=== PATIENT | female | born 1935 | race Caucasian/White ===

== ENCOUNTER 2022-05-25 16:58 | Inpatient (IN) | payer MEDICARE, SELFPAY ==
[2022-05-25] VITALS (17 sets, daily range): BP systolic 84–113; BP diastolic 59–81; PULSE 73–92; RESP 15–25; TEMP 36.6; O2SAT 91–99
--- NOTE | ~2022-05-25 | CT_ITS ---
EXAMINATION: CT cervical spine wo con DATE: 05/26/2022 00:59 INDICATION: Fall with abnormality on head CT. TECHNIQUE: Computed tomography (CT) of the cervical spine was performed without intravenous contrast. Automated exposure control and iterative reconstruction technique were employed. The dose-length pro duct was 101.42 mGy-cm. COMPARISON: None FINDINGS: 2 mm retrolisthesis C5 on C6. Schmorl's nodes versus old healed fracture of the C3 vertebral body wit h irregularities along the anterior superior and inferior endplates and mild anterior wedging. Remain ing vertebral body heights are normal. No acute fracture. Moderate disc height loss at C5-C6 with sev ere uncovertebral osteoarthritis and small posterior disc osteophyte complex which results in mild ce ntral canal stenosis. Mild disc height loss at C2-C3, C3-C4 and T2-T3. Multilevel moderate to severe facet osteoarthritis with lower cervical and upper thoracic predominance. Neural foraminal stenosis, moderate on the left and mild to moderate on the right at C5-C6. There is mild neural foraminal steno sis at many of the remaining neural foramina in the mid cervical to upper thoracic spine. There is an approximately 11 x 9 mm extra medullary soft tissue density nodule at the right anterior aspect of t he central canal at the level of the dens and ring of C1 which is also evident on the prior head CT. Unclear whether this is extradural or intradural. This results in mild central canal stenosis at this level and appears to indent the right anterior margin of the cervical medullary junction of the and spinal cord. Multinodular goiter with suggestion of prior right thyroidectomy with small residual thy roid tissue at the right thyroid fossa. Partially visualized likely cardiac pacemaker leads extending along the visualized portion of the left subclavian vein. Mild biapical pleural-parenchymal scarring . IMPRESSION: 1. Mild to moderate cervical spondylosis with no acute osseous abnormality. 2. Indeterminate 11 x 9 mm soft tissue density nodule at the right anterior aspect of the central can al at the level of the dens and ring of C1 extra medullary, unclear whether extradural or intradural. Recommend further evaluation with pre and postcontrast cervical spine MRI. Reviewed, dictated and finalized at location A. CAL RECORD CLERK IMPRESSION: 1. Mild to moderate cervical spondylosis with no acute osseous abnormality. 2. Indeterminate 11 x 9 mm soft tissue density nodule at the right anterior asp ect of the central canal at the level of the dens and ring of C1 extra medullar y, unclear whether extradural or intradural. Recommend further evaluation with pre and postcontrast cervical spine MRI.
--- NOTE | ~2022-05-25 | CT_ITS ---
EXAMINATION: CT abd pelvis lumbar wo con DATE: 05/25/2022 23:52 INDICATION: Diffuse abdominal pain TECHNIQUE: Computed tomography (CT) of the abdomen, pelvis and lumbar spine was performed with 100 mL Omnipaque-350 intravenous contrast. Automated exposure control and iterative reconstruction techniqu e were employed. The dose-length product was 274.20 mGy-cm. COMPARISON: None FINDINGS: There are a few <4 mm pleural and subpleural nodules at the periphery of the right and left lower lob es. Right atrial enlargement. Dual-lead cardiac pacemaker/AICD with lead tip at the apex of the right ventricle and the second in the portion of the right atrium not seen on the CT images but evident on the ese teacher topogram. No pericardial or pleural effusion. Small sliding-type hiatal hernia. Nonspecifi c 1.5 cm hypodense nodule in the dome of the liver with ill-defined margins. Gallbladder, pancreas an d right adrenal gland are normal. 1.2 cm left adrenal nodule. Small splenic calcific lesions consiste nt with old granulomatous disease. Bilateral renal cysts, the largest in the left kidney measuring 3. 9 cm. 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 No bowel obstruction or abnormal bowel wall thickening. The appendix is not visualized. No pericecal inflamma tory change to suggest acute appendicitis. The uterus is not identified and has likely been surgicall y resected. Bladder is normal. Mild pelvic floor relaxation. No free intraperitoneal gas or fluid. No pathologically enlarged abdominal or pelvic lymphadenopathy. Relatively recent-appearing superior en dplate compression fracture at L1 with 20% central vertebral body height loss. Second more chronic ap pearing L3 compression fracture with 40% central vertebral body height loss. Mild lumbar dextrocurvat ure with 7 mm right lateral listhesis L4 on L5. Severe lower lumbar spondylosis. IMPRESSION: 1. Relatively recent-appearing L1 superior endplate compression fracture with additional chronic L3 c ompression fracture. 2. No acute intra-abdominal/pelvic process. 3. Indeterminate 1.5 cm ill-defined hepatic nodule and 1.2 cm left adrenal nodule. In the absence of known malignancy, both are most likely benign could consider further evaluation with pre and postcont rast MRI. 4. Right atrial enlargement. 5. Small sliding-type hiatal hernia. 6. Multiple <4 mm pleural-based and subpleural nodules at the bilateral lower lobes. If the patient i s low risk for lung cancer, no follow-up is needed. If the patient is high risk (i.e., history of smo marleny or asbestos or significant radiation exposure), optional follow-up chest CT could be considered at 12 months. Reviewed, dictated and finalized at location A. H WINDER MACHINE OPERATOR IMPRESSION: 1. Relatively recent-appearing L1 superior endplate compression fracture with a dditional chronic L3 compression fracture. 2. No acute intra-abdominal/pelvic process. 3. Indeterminate 1.5 cm ill-defined hepatic nodule and 1.2 cm left adrenal nodu le. In the absence of known malignancy, both are most likely benign could consi nicole further evaluation with pre and postcontrast MRI. 4. Right atrial enlargement. 5. Small sliding-type hiatal hernia. 6. Multiple <4 mm pleural-based and subpleural nodules at the bilateral lower l obes. If the patient is low risk for lung cancer, no follow-up is needed. If th e patient is high risk (i.e., history of smoking or asbestos or significant rad iation exposure), optional follow-up chest CT could be considered at 12 months.
--- NOTE | ~2022-05-25 | XR_ITS ---
EXAMINATION: XR chest 1V portable Exam Date/Time: 05/25/2022 20:15 PRICING ANALYST HISTORY: weakness Comparison: None available. RESULT: Lines, tubes, and devices: Left chest pacer/AICD, with intact leads. Lungs and pleura: Clear. Cardiomediastinal silhouette: Calcified right hilar node. Aortic ectasia.. Other: No acute osseous or upper abdominal finding. IMPRESSION: No acute cardiopulmonary process. Reviewed, dictated and finalized at location K. ING ANALYST
--- NOTE | ~2022-05-25 | CT_ITS ---
EXAMINATION: CT brain wo con DATE: 05/25/2022 23:52 INDICATION: Head injury post fall TECHNIQUE: Computed tomography (CT) of the head was performed without intravenous contrast. Sagittal and coronal reconstructions were performed. The mA was adjusted according to patient size. Iterative reconstruction technique was employed. The dose-length product was 605.33 mGy-cm. COMPARISON: None FINDINGS: No fracture. No acute intracranial hemorrhage, acute infarction or abnormal extra axial fluid collect ion. There is mild scattered white matter hypoattenuation consistent with chronic small vessel ischem ic disease. Symmetric prominence of the sulci and ventricles consistent with moderate age-appropriate diffuse cerebral volume loss. No mass/mass effect. The orbits, paranasal sinuses and mastoid air meli ls are normal. IMPRESSION: 1. No fracture or acute intracranial process. 2. Age-related changes including moderate diffuse volume loss and mild scattered white matter hypoatt enuation consistent with chronic small vessel ischemic disease. Reviewed, dictated and finalized at location A. E DEVELOPER IMPRESSION: 1. No fracture or acute intracranial process. 2. Age-related changes including moderate diffuse volume loss and mild scattere d white matter hypoattenuation consistent with chronic small vessel ischemic di sease.
--- NOTE | 2022-05-25 19:48 | ECG_ITS ---
Measurements Intervals [place] Rate: 80 P: NE: 0 QRS: -23 QRSD: 94 T: -13 QT: 416 QTc: 480 Interpretive Statements ATRIAL FIBRILLATION VENTRICULAR PREMATURE COMPLEXES BORDERLINE T WAVE ABNORMALITY- INFERIOR LEADS BASELINE ARTIFACT- I, II, III, AVR, AVF ABNORMAL ECG NO PREVIOUS ECG AVAILABLE FOR COMPARISON Electronically Signed On 05-25-2022 21:25:15 SALMON GILLNET VESSEL OPERATOR by Adair Root D.O.
--- NOTE | 2022-05-25 19:52 | ED.GENADULT ---
HPI - General Adult General Chief complaint: Back Pain/Injury Stated complaint: back pain Time Seen by Provider: 05/25/22 19:41 Source: patient, family and RN notes reviewed Mode of arrival: wheelchair Limitations: dementia History of Present Illness HPI narrative: This is an 86 year old female who presents for evaluation of weakness and back pain. Patient's family states patient has fallen twice in past 2 weeks, and her last fall was 1 week ago. They reports patient hit her head at time but they just found out about the fall. Patient had been complaining of left lower back pain but over the past few days she reports pain across her entire lower back when she moves. Her family also reports that patient has been weak and she not been or drinking very much this week. Her family member reports patient has been weak. She states patient had stomach bug 1 -2 weeks ago. She states patient complained about abdominal pain but she is unsure of vomiting or diarrhea. She states patient has dementia so it is hard to know what is going on. she states patient had syncopal episode after going to bathroom today. Patient sat on the toilet and told her she was dizzy. She states she told patient to hold her head down but she states she passed out. PAtient did not hit head today. Patient was seen by PCP today and she was referred to ER for evaluation . She was also started on macrobid yesterday for possible UTI. PAtient does not have any complaints. Related Data Allergies Allergy/AdvReac Type Severity Reaction Status Date / Time No Known Allergies Allergy Verified 05/25/22 20:28 Review of Systems Constitutional: Constitutional: Reports weakness Cardiovascular: Cardiovascular: Denies syncope, Denies rapid heart rate, Denies irregular heart rhythm, Denies leg edema and Denies dyspnea Respiratory: Respiratory: Denies chest congestion, Denies hemoptysis, Denies excessive phlegm production and Denies dyspnea Gastrointestinal: Gastrointestinal: Reports abdominal pain, Denies hematochezia, Denies diarrhea and Denies vomiting Genitourinary: Genitourinary: Denies hematuria and Denies dysuria Musculoskeletal: Musculoskeletal: Denies joint swelling, Denies loss of height and Denies muscle weakness Neurologic: Reports syncope, Denies focal weakness and Reports weakness PMFSH Past Medical History Medical History (Updated 05/26/22 @ 01:56 by Pardeep Cantor MD) Atrial fibrillation Pacemaker Social History Social History (Updated 05/25/22 @ 19:55 by Mary Fried MD) Smoking status: Never smoker Living arrangements: assisted living Occupation/Education: retired Course Course Emergency Course: PAtient presented with family for weakness, abdominal pain , decreased PO intake and possible syncope. She had CBC, CMP, troponin, UA, urinalysis, lactic acid, EKG, CT brain, CT lumbar spine and CT abdomen pelvis. These was done to assess for dehydration, sepsis, kidney failure, MN, pneumonia, lumbar fracture, brain injury. Labs shows dehydration and low potassium. She was started on 1 L IV fluids and given potassium 40 meq oral in ER. She was also started on maintenance fluids with IV potassium. Radiologist reported abnormal soft tissue finding and recommended CT c spine. PAtient was not have neck pain. No acute fracture seen on cervical spine. She does appear to have mild compression fracture at 1 L. Patient to be admitted on telemetry and given potassium supplementation. I discussed with hospitalist Dr. Cantor who accepts to service. Vital Signs Vital signs: Vital Signs Temperature 97.8 F 05/25/22 17:03 Pulse Rate 78 05/25/22 17:03 Respiratory Rate 16 05/25/22 17:03 Blood Pressure 84/59 L 05/25/22 17:03 Pulse Oximetry 98 05/25/22 17:03 Temperature 97.8 F 05/25/22 17:03 Pulse Rate 92 05/25/22 23:25 Respiratory Rate 23 H 05/25/22 23:25 Blood Pressure 111/75 05/25/22 23:00 Pulse Oximetry 99
[2022-05-25 20:20] LABS: Appearance Urine Slightly Cloudy (Clear); Bilirubin Urine 1+ (Negative); Blood Urine Negative (Negative); Color Urine Dark Yellow (Yellow); Glucose Urine UA Negative (Negative); Ketones Urine Negative (Negative); Leukocyte Esterase Ur Negative LEU/UL (Negative); Nitrate Urine Negative (Negative); Protein Urine 2+ mg/dL (Negative); Specific Grav Ur 1.015 (1.001-1.035); Urobilinogen Urine 0.2 mg/dL (<2.0)
[2022-05-25 20:25] LABS: Bacteria Urine Trace /hpf; Hyaline Casts Urine 15-19 /lpf; Mucus Urine Rare /lpf; RBC Urine 0-2 /hpf (0-2); Squamous Epithelial Cell Urine Occasional /hpf (Few)
[2022-05-25 20:26] LABS: Add Urine Microscopic? YES
[2022-05-25 20:36] LABS: Basophils Percent Auto 0.5 % (0.2-1.2); Eosinophils Absolute Auto 0.2 K/mm3 (0-0.3); Hematocrit 43.5 % (37.0-47.0); Hemoglobin 15.1 g/dL (12.0-15.0); Immature Granulocyte Absolute 0.03 K/mm3 (0.00-0.031); Immature Granulocyte Percent A 0.4 % (0-0.5); Lymphocytes Absolute Auto 1.72 K/mm3 (0.9-3.2); Lymphocytes Percent Auto 21.9 % (18.3-44.2); Mean Corpuscular HGB Conc 34.7 g/dl (32-36); Mean Corpuscular Hemoglobin 32.8 pg (26-34); Mean Corpuscular Volume 94.6 fl (80-100); Mean Platelet Volume 10.6 fl (7.4-10.4); Monocytes Absolute Auto 0.7 K/mm3 (0.1-0.6); Monocytes Percent Auto 8.7 % (2.6-8.5); Neutrophils Absolute Auto 5.2 K/mm3 (1.3-6.7); Neutrophils Percent Auto 66.5 % (45.5-73.1); Platelet Count Result 203 k/mm3 (150-375); White Blood Count 7.8 K/mm3 (4.5-10.0)
[2022-05-25 20:49] LABS: Lactic Acid Reflex 2.3 mmol/L (0.7-2.0)
[2022-05-25 21:01] LABS: Influenza A QL RT-PCR Negative (Negative); Influenza B QL RT-PCR Negative (Negative); RSV RNA, RT-PCR Negative (Negative); SARS-CoV-2 RNA PCR Negative
[2022-05-25] MEDS: SODIUM CHLORIDE 0.9% IV 1,000 ML 999 ML IV CONT (21:38)
[2022-05-25 22:57] LABS: INR 1.8; Prothrombin Time 20.6 Seconds (11.1-14.7)
[2022-05-25 22:58] LABS: Partial Thromboplastin Time 35.1 SECONDS (22.3-36.8)
[2022-05-25 23:04] LABS: Troponin I < 0.012 ng/mL (0.000-0.034)
[2022-05-25 23:14] LABS: Alanine Aminotransferase 14 U/L (6-35); Albumin Level 3.6 g/dL (3.5-5.1); Alkaline Phosphatase 84 U/L (38-126); Anion Gap 7 mmol/L (8-16); Aspartate Amino Transferase 24 U/L (14-36); Blood Urea Nitrogen 27 mg/dL (7-17); Calcium 8.4 mg/dL (8.4-10.2); Carbon Dioxide 32 mmol/L (22-30); Chloride 96 mmol/L (98-107); Estimated CRCL calculation 19 ml/min; Estimated Glomerular Filt Rate 33; Glucose 97 mg/dL (65-110); Lipase 344 U/L (23-300); Magnesium 2.3 mg/dL (1.6-2.3); Potassium 2.6 mmol/L (3.4-5.0); Sodium 135 mmol/L (137-145)
[2022-05-25 23:34] LABS: Reflex Lactic Acid Yes or No Add Lactic
[2022-05-26] VITALS (11 sets, daily range): BP systolic 100–116; BP diastolic 63–86; PULSE 84–120; RESP 18–21; TEMP 36.6–36.8; O2SAT 97–100; BMI 21.9
[2022-05-26] MEDS: POTASSIUM CHLORIDE 20 MEQ PACKET (FOR LIQUID) 40 MEQ PO (00:13)
[2022-05-26] MEDS: KCL 20 MEQ/D5/0.45% SOD CHL 1,000 ML 125 ML IV CONT (00:13)
--- NOTE | 2022-05-26 01:53 | PM.IMHP ---
H&P: HPI History of Present Illness Date/Time: 05/26/22 01:53 Chief Complaint: Fall Narrative: This is an 86-year-old female with advanced dementia, atrial fibrillation rate control and anticoagulated. Patient resides at residential had a fall and has had progressive decline after that was noted that she has not been eating or drinking well. She had been seen and evaluated at her primary care physician's where she was empirically started on antibiotics with the assumption that there was a urinary tract infection. Patient was brought for evaluation she was found to have a compression fracture, a repeat urinalysis did not show urinary tract infection. Most of the history has been obtained from daughter who is at bedside as patient is conversant however cannot give history. Patient has been admitted for further evaluation management and treatment. Review of Systems Review of Systems: ROS unobtainable: Yes other (Advanced dementia) [facility] Past Medical History Medical History (Updated 05/26/22 @ 04:57 by Pardeep Cantor MD) Atrial fibrillation Pacemaker Social History Social History (Updated 05/25/22 @ 19:55 by Mary Fried MD) Smoking status: Never smoker Alcohol intake: never Substance use: never Substance use type: does not use Lack of Transportation: No Lack of Food: Never True Current Housing: I Have Housing Concerned About Future Housing: No Difficulty Paying Gas/Electric Bills: No Difficulty Paying for Meds: No Currently Unemployed: No Education: High School Diploma/GED Difficulty w/ Childcare or Family Care: No Living arrangements: assisted living Occupation/Education: retired Spiritual care concerns: No Meds Home Medications and Allergies Home Medications Medication Instructions Recorded Confirmed Type Vitamin D3 25 mg BYMOUTH DAILY 05/26/22 05/26/22 History bimatoprost 0.01 % eye drops 1 drp EACH EYE DAILY 05/26/22 05/26/22 History (Nadia) donepezil 10 mg tablet 10 mg PO HS 05/26/22 05/26/22 History furosemide 40 mg tablet 40 mg PO DAILY 05/26/22 05/26/22 History metoprolol succinate 100 mg 100 mg PO DAILY 05/26/22 05/26/22 History tablet,extended release 24 hr rivaroxaban 15 mg tablet (Xarelto) 15 mg PO DAILY 05/26/22 05/26/22 History rosuvastatin 20 mg tablet 20 mg PO HS 05/26/22 05/26/22 History trazodone 50 mg tablet 50 mg PO HS 05/26/22 05/26/22 History Allergies Allergy/AdvReac Type Severity Reaction Status Date / Time No Known Allergies Allergy Verified 05/25/22 20:28 Vital Signs Vital Signs - 24 hr 05/25/22 17:03 05/25/22 21:22 05/25/22 21:30 Temperature 97.8 F Pulse Rate 78 85 86 Respiratory Rate 16 18 17 Blood Pressure 84/59 L Pulse Oximetry 98 05/25/22 21:31 05/25/22 21:32 05/25/22 21:52 Temperature Pulse Rate 87 80 Respiratory Rate 23 H 15 25 H Blood Pressure 100/72 Pulse Oximetry 91 97 05/25/22 22:00 05/25/22 22:01 05/25/22 22:15 Temperature Pulse Rate 78 Respiratory Rate 18 Blood Pressure 109/72 113/74 Pulse Oximetry 98 99 05/25/22 22:16 05/25/22 22:30 05/25/22 22:32 Temperature Pulse Rate 80 82 78 Respiratory Rate 22 H 23 H 20 Blood Pressure 101/65 Pulse Oximetry 05/25/22 22:45 05/25/22 22:46 05/25/22 23:00 Temperature Pulse Rate 84 78 73 Respiratory Rate 18 17 19 Blood Pressure 108/81 111/75 Pulse Oximetry 05/25/22 23:01 05/25/22 23:25 Temperature Pulse Rate 79 92 Respiratory Rate 19 23 H Blood Pressure Pulse Oximetry Exam Narrative: Patient is laying in a stretcher Const: General: comfortable, no acute distress, well developed, alert, awake and average body habitus Nutritional Appearance: average body habitus Orientation/consciousness: oriented to person HENMT: Head: normal to inspection, normocephalic and atraumatic Ears: hearing grossly normal bilaterally Face/Nose/Sinus: normal facial exam Face and sinus: normal facia
--- NOTE | 2022-05-26 02:06 | PC.NURSE ---
Purwick urinary external catheter at this time. Pt tolerating well.
--- NOTE | 2022-05-26 03:04 | ADMGEN ---
This patient, Laverne Moss, was admitted to Medical Room 247-. Patient/family oriented to hospital policies and general routines including ID bracelet, bed and alarms, visiting hours, pain management, procedures, bathroom and other care routines, personal items, smoking policy, room service/diet, and visiting hours. Information on how to activate the Rapid Response Team has been discussed. Patient/Family are encouraged to report perceived risks to care and to ask questions if they do not understand what they are told or what they should do.
[2022-05-26 11:19] LABS: Anion Gap 4 mmol/L (8-16); Blood Urea Nitrogen 22 mg/dL (7-17); Calcium 8.2 mg/dL (8.4-10.2); Carbon Dioxide 31 mmol/L (22-30); Chloride 99 mmol/L (98-107); Estimated CRCL calculation 22 ml/min; Estimated Glomerular Filt Rate 39; Glucose 102 mg/dL (65-110); Magnesium 2.3 mg/dL (1.6-2.3); Sodium 134 mmol/L (137-145)
[2022-05-26] MEDS: METOPROLOL SUCCINATE EXT REL 100 MG TABCR PO (11:21)
[2022-05-26] MEDS: CHOLECALCIFEROL 1,000 UNITS TABLET 1000 UNITS PO (11:21)
[2022-05-26 11:29] LABS: Hematocrit 37.6 % (37.0-47.0); Hemoglobin 12.9 g/dL (12.0-15.0); Mean Corpuscular HGB Conc 34.3 g/dl (32-36); Mean Corpuscular Hemoglobin 32.6 pg (26-34); Mean Corpuscular Volume 94.9 fl (80-100); Platelet Count Result 167 k/mm3 (150-375); Red Blood Count 3.96 M/mm3 (4.2-5.4); Red Cell Distribution Width 12.9 % (11.5-14.5); White Blood Count 7.2 K/mm3 (4.5-10.0)
[2022-05-26] MEDS: LACTATED RINGERS 1,000 ML 75 ML IV CONT (12:25)
--- NOTE | 2022-05-26 16:46 | PM.IMPN ---
Progress Note: A&P Assessment and Plan (1) Frequent falls: Code(s): R29.6 - Repeated falls Status: Acute Assessment and Plan: patient with frequent falls implement fall precautions appreciate PT/OT evals (2) Compression fracture of vertebra: Code(s): M48.50XA - Collapsed vertebra, not elsewhere classified, site unspecified, initial encounter for fracture Status: Acute Assessment and Plan: CT of the abdomen/ pelvis showed relatively recent appearing L1 superior endplate compression fracture with additional chronic L3 compression fracture felt to be secondary to falls. appreciate neurosurgery recommendations supportive care (3) Nodule of soft tissue: Code(s): M79.89 - Other specified soft tissue disorders Status: Acute Assessment and Plan: cervical spine CT with indeterminate 11 x 9 mm soft tissue density nodule at the right anterior aspect of the central canal at the level of the dens and ring of C1. unclear whether extradural or intradural recommendations for follow-up cervical spine MRI, however not able to be completed at this facility given presence of pacemaker appreciate neurosurgery recommendations (4) RAMBO (acute kidney injury): Code(s): N17.9 - Acute kidney failure, unspecified Status: Acute Assessment and Plan: no prior labs to establish baseline. Creatinine elevated up to 1.5 on admission creatinine improved to 1.3 today with IV fluids IV fluids have been discontinued at this time and patient is tolerating oral intake continue to monitor BMP (5) Dementia: Code(s): F03.90 - Unspecified dementia, unspecified severity, without behavioral disturbance, psychotic disturbance, mood disturbance, and anxiety Status: Chronic Assessment and Plan: chronic, unchanged. Patient resides in [facility] Care continue donepezil (6) Abnormal computed tomography of abdomen and pelvis: Code(s): R93.5 - Abnormal findings on diagnostic imaging of other abdominal regions, including retroperitoneum Status: Acute Assessment and Plan: CT of the abdomen/pelvis with several abnormalities indeterminate 1.5 cm ill-defined hepatic nodule and 1.2 cm left adrenal nodule. Most likely benign in the absence of known malignancy - consider further evaluation with pre and postcontrast MRI. Patient will need outpatient follow-up for monitoring of this multiple <4 mm pleural-based and subpleural nodules at bilateral lower lobes. outpatient follow-up in 12 month can be considered based on patient/family wishes (7) Hypokalemia: Code(s): E87.6 - Hypokalemia Status: Acute Assessment and Plan: potassium 3.0 today supplement with 40 mEq p.o. KCl monitor BMP Subjective Date/time seen: 05/26/22 16:46 Interval history: date of service: 05/26/2022 Laverne Nugent is a 86-year-old female with history of atrial fibrillation and dementia who is seen in follow-up for weakness and back pain after suffering several falls. the patient is not able to provide any reliable history given her dementia. Patient denies any pain when asked. She denies nausea, vomiting, fever, or chills. States her appetite is good. Review of Systems Review of Systems: ROS unobtainable: Yes unobtainable due to mental status Exam Narrative: General: Well-nourished, well-appearing 86-year-old female, sitting up bed, comfortable, NARD Neuro: awake, alert and oriented to self only, speech clear, no focal neuro deficits noted HEENMT: normocephalic, atraumatic, EOMI, sclerae anicteric, moist oral mucosa Respiratory: clear to auscultation bilaterally, nonlabored breathing Cardio: regular rate, regular rhythm with S1-S2 Abdomen: nondistended, normoactive bowel sounds, soft, nontender to palpation Extremities: no edema, erythema, or tenderness to palpation, DP pulses 2+ bilaterally Skin:
[2022-05-26] MEDS: ACETAMINOPHEN 325 MG TABLET 650 MG PO (17:00)
[2022-05-26] MEDS: RIVAROXABAN 15 MG TABLET PO (17:01)
[2022-05-26] MEDS: POTASSIUM CHLORIDE 20 MEQ TABLET 40 MEQ PO (17:14)
[2022-05-26] MEDS: DONEPEZIL HCL 10 MG TABLET PO (20:28)
[2022-05-26] MEDS: ROSUVASTATIN 10 MG TABLET 20 MG PO (20:29)
[2022-05-26] MEDS: LATANOPROST 0.005% OP SOLN 2.5 ML BTL 1 DROP EACH EYE (20:29)
[2022-05-26] MEDS: traZODone HCL 50 MG TABLET PO (20:30)
[2022-05-27] VITALS (10 sets, daily range): BP systolic 84–110; BP diastolic 46–71; PULSE 82–131; RESP 16–20; TEMP 36.4–36.5; O2SAT 95–99
[2022-05-27 08:39] LABS: Basophils Percent Auto 0.5 % (0.2-1.2); Eosinophils Absolute Auto 0.1 K/mm3 (0-0.3); Eosinophils Percent Auto 2.2 % (0-4.4); Hematocrit 39.2 % (37.0-47.0); Hemoglobin 13.1 g/dL (12.0-15.0); Immature Granulocyte Absolute 0.01 K/mm3 (0.00-0.031); Immature Granulocyte Percent A 0.2 % (0-0.5); Lymphocytes Percent Auto 20.7 % (18.3-44.2); Mean Corpuscular HGB Conc 33.4 g/dl (32-36); Mean Corpuscular Hemoglobin 32.3 pg (26-34); Mean Corpuscular Volume 96.8 fl (80-100); Mean Platelet Volume 10.6 fl (7.4-10.4); Monocytes Absolute Auto 0.5 K/mm3 (0.1-0.6); Monocytes Percent Auto 8.4 % (2.6-8.5); Neutrophils Absolute Auto 4.3 K/mm3 (1.3-6.7); Platelet Count Result 177 k/mm3 (150-375); Red Blood Count 4.05 M/mm3 (4.2-5.4); White Blood Count 6.3 K/mm3 (4.5-10.0)
[2022-05-27 08:53] LABS: Alanine Aminotransferase 14 U/L (6-35); Albumin Level 3.8 g/dL (3.5-5.1); Alkaline Phosphatase 90 U/L (38-126); Anion Gap 6 mmol/L (8-16); Aspartate Amino Transferase 25 U/L (14-36); Bilirubin,Total 0.9 mg/dL (0.2-1.3); Blood Urea Nitrogen 15 mg/dL (7-17); Calcium 8.8 mg/dL (8.4-10.2); Carbon Dioxide 28 mmol/L (22-30); Chloride 104 mmol/L (98-107); Estimated CRCL calculation 25 ml/min; Estimated Glomerular Filt Rate 47; Glucose 106 mg/dL (65-110); Magnesium 2.3 mg/dL (1.6-2.3); Potassium 3.5 mmol/L (3.4-5.0); Sodium 138 mmol/L (137-145)
[2022-05-27] MEDS: METOPROLOL SUCCINATE EXT REL 100 MG TABCR PO (09:45)
[2022-05-27] MEDS: CHOLECALCIFEROL 1,000 UNITS TABLET 1000 UNITS PO (09:45)
[2022-05-27] MEDS: ACETAMINOPHEN 325 MG TABLET 650 MG PO ×2 (09:46→20:17)
--- NOTE | 2022-05-27 10:25 | PCOTNOTE ---
Attempted OT evaluation, patient will need a neuro consult prior to completing OT evaluation. Will follow.
--- NOTE | 2022-05-27 10:49 | PCPTNOTE ---
Attempted PT evaluation, patient will need a neuro consult prior to completing PT evaluation. Will follow.
--- NOTE | 2022-05-27 13:22 | PC.NURSE ---
reviewed order for brace with wire tempererDOMENIC Mallory, she will contact rep to come out to assess pt for brace
--- NOTE | 2022-05-27 16:31 | PM.IMPN ---
Progress Note: A&P Assessment and Plan (1) Frequent falls: Code(s): R29.6 - Repeated falls Status: Acute Assessment and Plan: patient with frequent falls implement fall precautions appreciate PT/OT evals (2) Compression fracture of vertebra: Code(s): M48.50XA - Collapsed vertebra, not elsewhere classified, site unspecified, initial encounter for fracture Status: Acute Assessment and Plan: CT of the abdomen/ pelvis showed relatively recent appearing L1 superior endplate compression fracture with additional chronic L3 compression fracture felt to be secondary to falls. appreciate neurosurgery recommendations patient to be fitted for a brace supportive care (3) Nodule of soft tissue: Code(s): M79.89 - Other specified soft tissue disorders Status: Acute Assessment and Plan: cervical spine CT with indeterminate 11 x 9 mm soft tissue density nodule at the right anterior aspect of the central canal at the level of the dens and ring of C1. unclear whether extradural or intradural discussed with neurosurgery. [place] to likely be meningioma. Patient's daughter states this has been evaluated before and has not changed in size. Family declines desire for further follow-up (4) RAMBO (acute kidney injury): Code(s): N17.9 - Acute kidney failure, unspecified Status: Acute Assessment and Plan: no prior labs to establish baseline. Creatinine elevated up to 1.5 on admission creatinine improved to 1.1 today with IV fluids IV fluids have been discontinued at this time and patient is tolerating oral intake continue to monitor BMP (5) Dementia: Code(s): F03.90 - Unspecified dementia, unspecified severity, without behavioral disturbance, psychotic disturbance, mood disturbance, and anxiety Status: Chronic Assessment and Plan: chronic, unchanged. Patient resides in Memory Care continue donepezil (6) Abnormal computed tomography of abdomen and pelvis: Code(s): R93.5 - Abnormal findings on diagnostic imaging of other abdominal regions, including retroperitoneum Status: Acute Assessment and Plan: CT of the abdomen/pelvis with several abnormalities indeterminate 1.5 cm ill-defined hepatic nodule and 1.2 cm left adrenal nodule. Most likely benign in the absence of known malignancy multiple <4 mm pleural-based and subpleural nodules at bilateral lower lobes. outpatient follow-up in 12 month can be considered based on patient/family wishes discussed results with patient's daughter today who declines any further follow-up given patient's advanced age, dementia, and that she is asymptomatic (7) Hypokalemia: Code(s): E87.6 - Hypokalemia Status: Acute Assessment and Plan: resolved. Potassium 3.5 today monitor BMP Subjective Date/time seen: 05/27/22 16:31 Interval history: Date of service: 05/27/2022 Laverne Nugent is a 86-year-old female with history of atrial fibrillation and dementia who is seen in follow-up for weakness and back pain after suffering several falls. the patient is a poor historian due to her dementia. She states that she is not having pain at this time. She has been able to get out of bed today and get to the bedside commode. She has no pain with movement. She denies nausea, vomiting, shortness of breath, cough, or chest pain. Not able to obtain any additional history. The patient's daughter is at the bedside and reports that the patient has been comfortable today. The daughter was present during patient's neuro surgery evaluations and would like the patient to be fitted for a brace. Review of Systems Review of Systems: All systems reviewed & are unremarkable except as noted in HPI and below Exam Narrative: General: Well-nourished, well-appearing 86-year-old female, sitting up bed, comfortable, NARD Neuro: awake, alert and orien
--- NOTE | 2022-05-27 17:31 | WPDNEUROSGCN ---
Assessment and Plan Assessment and plan (1) Compression fracture of vertebra: Code(s): M48.50XA - Collapsed vertebra, not elsewhere classified, site unspecified, initial encounter for fracture Status: Acute (2) Meningioma: Code(s): D32.9 - Benign neoplasm of meninges, unspecified Status: Acute Plan Ms. Nugent is an 86-year-old female with history of dementia who presents for evaluation of back pain after multiple recent falls. Her back pain is focal without radiation to the legs. She is neurologically intact on physical exam. CT lumbar spine shows compression fractures at L1 and L3 with about 33% loss of height. I recommend a TLSO brace that should be worn when she is sitting out of bed. Once the brace is fitted, I would recommend upright lumbar x-rays to ensure stability of the fracture as well as physical therapy evaluation. Regarding the soft tissue mass at the level of C1, I believe that this most likely represents a meningioma. This would ideally be evaluated with an MRI cervical spine without and with contrast; however, because of her pacemaker, she is unable to have that at this hospital. Additionally, given her age and her seeming lack of symptoms from it, I do not believe that she would require any intervention for it at this time. I discussed this with her daughter who do not feel that MRI was necessary and that this has been discussed in the past when she was admitted for her pacemaker, and so she was already aware of the issue. I will plan to see her in clinic in about 6 weeks with lumbar x-rays immediately prior. I will arrange for this follow-up. Plan: -Recommend TLSO brace -Recommend upright lumbar xrays once fitted in the brace -Follow up with me in clinic in 6 weeks Review of Systems Review of Systems: All systems reviewed & are unremarkable except as noted in HPI and below PMFSH Past Medical History Medical History (Updated 05/27/22 @ 17:41 by Марина Lujan MD) Atrial fibrillation Pacemaker Social History Social History (Updated 05/25/22 @ 19:55 by Mary Fried MD) Smoking status: Never smoker Alcohol intake: never Substance use: never Substance use type: does not use Lack of Transportation: No Lack of Food: Never True Current Housing: I Have Housing Concerned About Future Housing: No Difficulty Paying Gas/Electric Bills: No Difficulty Paying for Meds: No Currently Unemployed: No Education: High School Diploma/GED Difficulty w/ Childcare or Family Care: No Living arrangements: assisted living Occupation/Education: retired Spiritual care concerns: No Meds Home Medications and Allergies Home Medications Medication Instructions Recorded Confirmed Type Vitamin D3 25 mg BYMOUTH DAILY 05/26/22 05/26/22 History bimatoprost 0.01 % eye drops 1 drp EACH EYE DAILY 05/26/22 05/26/22 History ([place]) donepezil 10 mg tablet 10 mg PO HS 05/26/22 05/26/22 History furosemide 40 mg tablet 40 mg PO DAILY 05/26/22 05/26/22 History metoprolol succinate 100 mg 100 mg PO DAILY 05/26/22 05/26/22 History tablet,extended release 24 hr rivaroxaban 15 mg tablet (Xarelto) 15 mg PO DAILY 05/26/22 05/26/22 History rosuvastatin 20 mg tablet 20 mg PO HS 05/26/22 05/26/22 History trazodone 50 mg tablet 50 mg PO HS 05/26/22 05/26/22 History Allergies Allergy/AdvReac Type Severity Reaction Status Date / Time No Known Allergies Allergy Verified 05/25/22 20:28 Vital Signs Vital Signs - 24 hr 05/26/22 21:25 05/26/22 22:00 05/26/22 20:00 Temperature 97.9 F 97.9 F Pulse Rate 92 97 114 H Respiratory Rate 18 18 Blood Pressure 100/73 116/75 Pulse Oximetry 97 97 Oxygen Delivery 05/26/22 20:00 05/27/22 00:00 05/27/22 04:00 Temperature Pulse Rate 114 H 114 H 131 H Respiratory Rate 18 Blood Pressure Pulse Oximetry 97 Oxygen Delivery Room Air 05/27/22 06:00 05/27/22 09:45 05/27/22 08:00 Temperature 97.7 F
[2022-05-27] MEDS: RIVAROXABAN 15 MG TABLET PO (18:00)
[2022-05-27] MEDS: DONEPEZIL HCL 10 MG TABLET PO (20:17)
[2022-05-27] MEDS: ROSUVASTATIN 10 MG TABLET 20 MG PO (20:17)
[2022-05-27] MEDS: traZODone HCL 50 MG TABLET PO (20:17)
[2022-05-27] MEDS: LATANOPROST 0.005% OP SOLN 2.5 ML BTL 1 DROP EACH EYE (20:17)
[2022-05-28] VITALS (9 sets, daily range): BP systolic 82–106; BP diastolic 42–58; PULSE 86–106; RESP 18; TEMP 36.3; O2SAT 100
[2022-05-28 05:08] LABS: Hemoglobin 11.5 g/dL (12.0-15.0); Mean Corpuscular HGB Conc 32.9 g/dl (32-36); Mean Corpuscular Hemoglobin 32.6 pg (26-34); Mean Corpuscular Volume 99.2 fl (80-100); Mean Platelet Volume 9.8 fl (7.4-10.4); Platelet Count Result 149 k/mm3 (150-375); Red Blood Count 3.53 M/mm3 (4.2-5.4); Red Cell Distribution Width 13.2 % (11.5-14.5); White Blood Count 5.7 K/mm3 (4.5-10.0)
[2022-05-28 05:28] LABS: Anion Gap 3 mmol/L (8-16); Blood Urea Nitrogen 16 mg/dL (7-17); Calcium 8.3 mg/dL (8.4-10.2); Carbon Dioxide 28 mmol/L (22-30); Chloride 105 mmol/L (98-107); Estimated CRCL calculation 25 ml/min; Estimated Glomerular Filt Rate 47; Glucose 90 mg/dL (65-110); Potassium 3.3 mmol/L (3.4-5.0); Sodium 136 mmol/L (137-145)
[2022-05-28] MEDS: POTASSIUM CHLORIDE 20 MEQ TABLET PO (08:14)
[2022-05-28] MEDS: ACETAMINOPHEN 325 MG TABLET 650 MG PO ×2 (08:15→14:40)
[2022-05-28] MEDS: METOPROLOL SUCCINATE EXT REL 100 MG TABCR PO (08:15)
[2022-05-28] MEDS: CHOLECALCIFEROL 1,000 UNITS TABLET 1000 UNITS PO (08:15)
--- NOTE | 2022-05-28 14:02 | P.DS_ITS ---
DS: Admitting Diagnosis Discharge Date 05/28/2022 Admitting Diagnosis Fall DS: Discharge Diagnosis Discharge Diagnosis (1) Frequent falls: Code(s): R29.6 - Repeated falls Status: Acute Assessment and Plan: Patient presented after 2 falls within the past 2 weeks * Fall precautions implemented * Participated in PT/OT during admission * Continue therapy at assisted living facility (2) Compression fracture of vertebra: Code(s): M48.50XA - Collapsed vertebra, not elsewhere classified, site unspecified, initial encounter for fracture Status: Acute Assessment and Plan: CT of the abdomen/ pelvis showed relatively recent appearing L1 superior endplate compression fracture with additional chronic L3 compression fracture * felt to be secondary to falls. * she was seen in consultation by Neurosurgery during admission * She was fitted for TLSO brace to be worn when out of bed * Follow up with neurology as an outpatient in 6 weeks with repeat lumbar x- rays prior to appointment * supportive care provided (3) Nodule of soft tissue: Code(s): M79.89 - Other specified soft tissue disorders Status: Acute Assessment and Plan: Cervical spine CT with indeterminate 11 x 9 mm soft tissue density nodule at the right anterior aspect of the central canal at the level of the dens and ring of C1. unclear whether extradural or intradural * Evaluated by neurosurgery * [place] to be most consistent with a meningioma * Follow-up with MRI would be best for further evaluation, however this was unable to be completed because patient has a pacemaker * Based on her advanced age and given that she is asymptomatic, her daughter/POA has no desire for further evaluation of this (4) RAMBO (acute kidney injury): Code(s): N17.9 - Acute kidney failure, unspecified Status: Acute Assessment and Plan: Resolved. No prior labs to establish baseline. Creatinine elevated up to 1.5 on admission * creatinine improved to 1.1 following IV fluid rehydration * creatinine remained stable and home furosemide was restarted * repeat BMP in 1 week to monitor renal function (5) Dementia: Code(s): F03.90 - Unspecified dementia, unspecified severity, without behavioral disturbance, psychotic disturbance, mood disturbance, and anxiety Status: Chronic Assessment and Plan: chronic, unchanged. Patient resides in Memory Care * continue donepezil (6) Abnormal computed tomography of abdomen and pelvis: Code(s): R93.5 - Abnormal findings on diagnostic imaging of other abdominal regions, including retroperitoneum Status: Acute Assessment and Plan: CT of the abdomen/pelvis with several abnormalities * indeterminate 1.5 cm ill-defined hepatic nodule and 1.2 cm left adrenal nodule. Most likely benign in the absence of known malignancy * multiple <4 mm pleural-based and subpleural nodules at bilateral lower lobes. outpatient follow-up in 12 month can be considered based on patient/family wishes * discussed results with patient's daughter who declined any further follow-up given patient's advanced age, dementia, and that she is asymptomatic (7) Hypokalemia: Code(s): E87.6 - Hypokalemia Status: Acute Assessment and Plan: Potassium was slightly low during admission * Likely due to diuretic * Patient started on potassium supplement, 20 mEq daily * Instructed to repeat BMP in 1 week at outpatient facility (8) Hypotension: Code(s): I95
--- NOTE | 2022-05-28 14:02 | PM.DS ---
DS: Admitting Diagnosis Discharge Date 05/28/2022 Admitting Diagnosis Fall DS: Discharge Diagnosis Discharge Diagnosis (1) Frequent falls: Code(s): R29.6 - Repeated falls Status: Acute Assessment and Plan: Patient presented after 2 falls within the past 2 weeks Fall precautions implemented Participated in PT/OT during admission Continue therapy at assisted living facility (2) Compression fracture of vertebra: Code(s): M48.50XA - Collapsed vertebra, not elsewhere classified, site unspecified, initial encounter for fracture Status: Acute Assessment and Plan: CT of the abdomen/ pelvis showed relatively recent appearing L1 superior endplate compression fracture with additional chronic L3 compression fracture felt to be secondary to falls. she was seen in consultation by Neurosurgery during admission She was fitted for TLSO brace to be worn when out of bed Follow up with neurology as an outpatient in 6 weeks with repeat lumbar x-rays prior to appointment supportive care provided (3) Nodule of soft tissue: Code(s): M79.89 - Other specified soft tissue disorders Status: Acute Assessment and Plan: Cervical spine CT with indeterminate 11 x 9 mm soft tissue density nodule at the right anterior aspect of the central canal at the level of the dens and ring of C1. unclear whether extradural or intradural Evaluated by neurosurgery [place] to be most consistent with a meningioma Follow-up with MRI would be best for further evaluation, however this was unable to be completed because patient has a pacemaker Based on her advanced age and given that she is asymptomatic, her daughter/POA has no desire for further evaluation of this (4) RAMBO (acute kidney injury): Code(s): N17.9 - Acute kidney failure, unspecified Status: Acute Assessment and Plan: Resolved. No prior labs to establish baseline. Creatinine elevated up to 1.5 on admission creatinine improved to 1.1 following IV fluid rehydration creatinine remained stable and home furosemide was restarted repeat BMP in 1 week to monitor renal function (5) Dementia: Code(s): F03.90 - Unspecified dementia, unspecified severity, without behavioral disturbance, psychotic disturbance, mood disturbance, and anxiety Status: Chronic Assessment and Plan: chronic, unchanged. Patient resides in Memory Care continue donepezil (6) Abnormal computed tomography of abdomen and pelvis: Code(s): R93.5 - Abnormal findings on diagnostic imaging of other abdominal regions, including retroperitoneum Status: Acute Assessment and Plan: CT of the abdomen/pelvis with several abnormalities indeterminate 1.5 cm ill-defined hepatic nodule and 1.2 cm left adrenal nodule. Most likely benign in the absence of known malignancy multiple <4 mm pleural-based and subpleural nodules at bilateral lower lobes. outpatient follow-up in 12 month can be considered based on patient/family wishes discussed results with patient's daughter who declined any further follow-up given patient's advanced age, dementia, and that she is asymptomatic (7) Hypokalemia: Code(s): E87.6 - Hypokalemia Status: Acute Assessment and Plan: Potassium was slightly low during admission Likely due to diuretic Patient started on potassium supplement, 20 mEq daily Instructed to repeat BMP in 1 week at outpatient facility (8) Hypotension: Code(s): I95.9 - Hypotension, unspecified Status: Acute Assessment and Plan: Blood pressures were slightly soft during admission in the 90s systolic Metoprolol succinate decreased to 50 mg daily Blood pressures will be monitored DS: Summary Hospital Course Hospital Course: Date of admission: 05/25/2022 Date of discharge: 05/28/2022 Laverne Ryne Kylesunshine is an 86-year-old female with history of atrial fibrillation a
[2022-05-28] MEDS: RIVAROXABAN 15 MG TABLET PO (17:37)
== END 2022-05-28 18:42 | DRG 683 ==
LOC: ANHED 20:49 → ANH2MED 05-26 02:24
PROVIDERS: Admitting Provider Internal Medicine; Emergency Provider General Practice; PCP Internal Medicine; Visit Provider Physician Assistant
DX: N17.9 Acute kidney failure, unspecified (principal); M48.56XA Collapsed vertebra, not elsewhere classified, lumbar region, initial encounter for fracture; S32.019A Unspecified fracture of first lumbar vertebra, initial encounter for closed fracture; W19.XXXA Unspecified fall, initial encounter; F03.90 Unspecified dementia, unspecified severity, without behavioral disturbance, psychotic disturbance, mood disturbance, and anxiety; E87.6 Hypokalemia; Z20.822 Contact with and (suspected) exposure to COVID-19; D32.1 Benign neoplasm of spinal meninges; I48.91 Unspecified atrial fibrillation; Z95.0 Presence of cardiac pacemaker; R29.6 Repeated falls
CPT/HCPCS: 36415; 70450; 71045; 72125; 72131; 74176; 80048; 80053; 81001; 83605; 83690; 83735; 84484; 85025; 85027; 85610; 85730; 87637; 93005; 96361; 96365; 96366; 96375; 97161; 97165; 97530; 97535; 99285; A9270; G0378; J0131; J3480; J7030; J7120

== ENCOUNTER 2022-06-24 14:56 | Observation (INO) | payer MEDICARE, SELFPAY ==
[2022-06-24] VITALS (18 sets, daily range): BP systolic 87–142; BP diastolic 63–86; PULSE 90–127; RESP 14–24; TEMP 36.4–36.9; O2SAT 93–100; BMI 18.7
--- NOTE | ~2022-06-24 | CT_ITS ---
Clinical Indication: Hypoxic event CT Scan of the Chest with Contrast: Technique: Contiguous sections were acquired throughout the chest after intravenous administration of 100 cc of Omnipaque 350. Dose reduction technique was used on this scan by utilizing automated expos ure control and iterative reconstruction technique. The dose-length product (DLP) was 172.83 mGy-cm. Findings: There is no evidence of any significant mediastinal, hilar or axillary lymphadenopathy. There is no f illing defect in the pulmonary arterial tree to suggest pulmonary embolus. Ascending aorta is mildly dilated to 4.5 cm in diameter. There is no evidence of pleural or pericardial effusion. Several calcified granulomas. Several subcentimeter groundglass opacities noted in the right lower lo be, nonspecific.. Images through the upper abdomen reveal no abnormalities. There is a probable acute L1 compression fr acture. Partially imaged L3 compression fracture present. Impression: No pulmonary embolus. Moderate L1 compression fracture, likely acute. Partially imaged L3 compression fracture, age-indeter minate. Mild ascending aortic aneurysm, measuring 4.5 cm in diameter. Stable subcentimeter groundglass opacities in right lower lobe, nonspecific. Consider follow-up exam in one year to reassess. Reviewed, dictated and finalized at location . 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 Moderate L1 compression fracture, likely acute. Partially imaged L3 compression fracture, age-indeterminate. Mild ascending aortic aneurysm, measuring 4.5 cm in diameter. Stable subcentimeter groundglass opacities in right lower lobe, nonspecific. Co nsider follow-up exam in one year to reassess.
--- NOTE | ~2022-06-24 | XR_ITS ---
EXAMINATION: XR chest 2V DATE: 06/24/2022 15:41 INDICATION: Hypoxia TECHNIQUE: AP and lateral views of the chest are obtained. COMPARISON: 05/25/2022 FINDINGS: The lungs are free of acute opacities. No pleural effusion or pneumothorax. The cardiomedia stinal silhouette is normal. There is mild thoracic spondylosis. A dual-lead cardiac pacemaker of the left chest wall ends with leads in expected locations. IMPRESSION: 1. No acute cardiopulmonary abnormality. Reviewed, dictated and finalized at location F. 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
--- NOTE | 2022-06-24 15:08 | ECG_ITS ---
Measurements Intervals [place] Rate: 112 P: [place]: 0 QRS: -29 QRSD: 84 T: 31 QT: 334 QTc: 457 Interpretive Statements ATRIAL FIBRILLATION WITH RAPID VENTRICULAR RESPONSE CANNOT RULE OUT SEPTAL INFARCT, AGE INDETERMINATE BASELINE ARTIFACT- V3-V4 ABNORMAL ECG COMPARED TO ECG 05/25/2022 20:16:08 HEART RATE HAS INCREASED Electronically Signed On 06-25-2022 8:27:33 LEHR OPERATOR by Adair Root D.O.
[2022-06-24 15:27] LABS: Basophils Percent Auto 0.6 % (0.2-1.2); Eosinophils Absolute Auto 0.1 K/mm3 (0-0.3); Eosinophils Percent Auto 1.3 % (0-4.4); Hematocrit 44.8 % (37.0-47.0); Hemoglobin 14.9 g/dL (12.0-15.0); Immature Granulocyte Absolute 0.04 K/mm3 (0.00-0.031); Immature Granulocyte Percent A 0.6 % (0-0.5); Lymphocytes Percent Auto 25.2 % (18.3-44.2); Mean Corpuscular HGB Conc 33.3 g/dl (32-36); Mean Corpuscular Hemoglobin 33.5 pg (26-34); Mean Corpuscular Volume 100.7 fl (80-100); Mean Platelet Volume 9.3 fl (7.4-10.4); Monocytes Absolute Auto 0.4 K/mm3 (0.1-0.6); Monocytes Percent Auto 6.2 % (2.6-8.5); Neutrophils Absolute Auto 4.5 K/mm3 (1.3-6.7); Neutrophils Percent Auto 66.1 % (45.5-73.1); Platelet Count Result 204 k/mm3 (150-375); Red Blood Count 4.45 M/mm3 (4.2-5.4); Red Cell Distribution Width 15.2 % (11.5-14.5); White Blood Count 6.7 K/mm3 (4.5-10.0)
[2022-06-24 15:36] LABS: Alanine Aminotransferase 17 U/L (6-35); Albumin Level 4.4 g/dL (3.5-5.1); Alkaline Phosphatase 136 U/L (38-126); Anion Gap 8 mmol/L (8-16); Aspartate Amino Transferase 32 U/L (14-36); Bilirubin,Total 0.9 mg/dL (0.2-1.3); Blood Urea Nitrogen 21 mg/dL (7-17); Calcium 9.7 mg/dL (8.4-10.2); Carbon Dioxide 27 mmol/L (22-30); Chloride 101 mmol/L (98-107); Estimated CRCL calculation 26 ml/min; Estimated Glomerular Filt Rate 47; Glucose 120 mg/dL (65-110); Potassium 5.7 mmol/L (3.4-5.0); Sodium 136 mmol/L (137-145)
[2022-06-24 16:53] LABS: Influenza A QL RT-PCR Negative (Negative); Influenza B QL RT-PCR Negative (Negative); RSV RNA, RT-PCR Negative (Negative); SARS-CoV-2 RNA PCR Negative
--- NOTE | 2022-06-24 17:05 | ED.GENADULT ---
HPI - General Adult General Chief complaint: Shortness of Breath/Dyspnea Stated complaint: low RA pulse ox, 0 resp. c/o Time Seen by Provider: 06/24/22 15:57 History of Present Illness HPI narrative: 87-year-old female with history of dementia, atrial fibrillation presented to the emergency department for evaluation of a cyanotic episode that occurred while the patient was in physical therapy. Physical therapy states that the patient became blue and had a pulse ox in the 70s. When EMS arrived patient was saturating in the 90s. Upon arrival to the emergency department patient was alert and at her baseline. Patient denies any complaints during the exam. Patient was saturating in the mid to high 90s on room air. Related Data Home Medications Medication Instructions Recorded Confirmed Vitamin D3 25 mg BYMOUTH DAILY 05/26/22 06/24/22 bimatoprost 0.01 % eye drops 1 drp EACH EYE DAILY 05/26/22 06/24/22 ([place]) donepezil 10 mg tablet 10 mg PO HS 05/26/22 06/24/22 furosemide 40 mg tablet 40 mg PO DAILY 05/26/22 06/24/22 rivaroxaban 15 mg tablet (Xarelto) 15 mg PO DAILY 05/26/22 06/24/22 rosuvastatin 20 mg tablet 20 mg PO HS 05/26/22 06/24/22 trazodone 50 mg tablet 50 mg PO HS 05/26/22 06/24/22 acetaminophen 650 mg 650 mg PO Q4H PRN Pain 06/24/22 06/24/22 tablet,extended release metoprolol succinate 100 mg 50 mg PO DAILY 06/24/22 06/24/22 tablet,extended release 24 hr tramadol 50 mg tablet 50 mg PO Q12H 06/24/22 06/24/22 Allergies Allergy/AdvReac Type Severity Reaction Status Date / Time No Known Allergies Allergy Verified 06/24/22 15:20 Review of Systems Review of Systems: All systems reviewed & are unremarkable except as noted in HPI and below PMFSH Past Medical History Medical History (Updated 06/24/22 @ 17:08 by Endy Harmon MD) Atrial fibrillation Pacemaker Social History Social History (Updated 05/25/22 @ 19:55 by Mary Fried MD) Smoking status: Never smoker Alcohol intake: never Substance use: never Substance use type: does not use Lack of Transportation: No Lack of Food: Never True Current Housing: I Have Housing Concerned About Future Housing: No Difficulty Paying Gas/Electric Bills: No Difficulty Paying for Meds: No Currently Unemployed: No Education: High School Diploma/GED Difficulty w/ Childcare or Family Care: No Living arrangements: assisted living Occupation/Education: retired Spiritual care concerns: No Course Course Emergency Course: 87-year-old female presenting for evaluation of a cyanotic episode. Patient is saturating well on room air. When at rest patient's atrial fibrillation is rate controlled with minor activity patient's A-fib does spike to 120s to 150s. EKG showed A-fib with RVR with no ectopy or concerning ST changes. Chest x-ray showed no acute cardiopulmonary abnormality. Patient was also found to be hyperkalemic with a potassium of 5.7. Patient was treated with Lokelma, dextrose, insulin and bicarb. Suspect that with the patient was exerting herself during physical therapy that she experienced A-fib with RVR and had another a poor pulse ox or truly became exerted and cyanotic. Case was discussed with hospitalist and patient was accepted for admission to the IMU. Patient's son was updated on the results of the work-up including the paroxysmal A-fib with RVR versus rate control and the hyperkalemia. Vital Signs Vital signs: Vital Signs Temperature 97.6 F 06/24/22 14:55 Pulse Rate 127 H 06/24/22 14:55 Respiratory Rate 18 06/24/22 14:55 Blood Pressure 107/75 06/24/22 14:55 Pulse Oximetry 93 06/24/22 14:55 Oxygen Delivery Room Air 06/24/22 14:55 Temperature 98.5 F 06/24/22 20:00 Pulse Rate 108 H 06/24/22 20:00 Respiratory Rate 16 06/24/22 20:00 Blood Pressure 87/64 L 06/24/22 20:00 Pulse Oximetry 100 06/24/22 20:00 Oxygen Delivery Room Air 06/24/22 18:15 Medical Decision M
[2022-06-24] MEDS: DEXTROSE 50% 25 GM/50 ML SYRINGE IV PUSH (17:22)
[2022-06-24] MEDS: INSULIN HUMAN REGULAR (*BKC) 100 UNITS/ML IV PUSH (17:22)
[2022-06-24] MEDS: SODIUM ZIRCONIUM CYCLOSILICATE 10 GM POWD.PACK PO (17:22)
--- NOTE | 2022-06-24 18:04 | ADMGEN ---
This patient, Laverne Nguent, was admitted to IMU Room 205-02. Patient/family oriented to hospital policies and general routines including ID bracelet, bed and alarms, visiting hours, pain management, procedures, bathroom and other care routines, personal items, smoking policy, room service/diet, and visiting hours. Information on how to activate the Rapid Response Team has been discussed. Patient/Family are encouraged to report perceived risks to care and to ask questions if they do not understand what they are told or what they should do.
--- NOTE | 2022-06-24 22:27 | PM.IMHP ---
H&P: HPI History of Present Illness Date/Time: 06/24/22 22:27 Chief Complaint: shortness of breath, dyspnea Narrative: this is an 87-year-old female patient with a history of dementia and resides at [facility]. The patient is answering the questions to the best of her knowledge. The patient has a history of atrial fibrillation and was brought to the emergency room to be evaluated for a cyanotic episode that occurred while she was in physical therapy. The patient became blue and had a pulse ox of 70%. When EMS arrived the patient's O2 saturations were in the 90s. Upon arrival to the emergency room the patient was alert and matter baseline. Her oxygen levels were in the 90 percentile on room air. Patient is currently on room air and denies any further shortness of breath. Her potassium was found to be 5.7 and her sodium is slightly low at 136. His creatinine is 1.1 which is her baseline. GFR is 47 which again is her baseline. The patient was found to be negative for influenza A/B COVID and RSV. The patient was given D50, low count mow and regular insulin IV. Patient has no further complaints of chest pain or palpitations. The patient was found to be in AFib with RVR. Her chest x-ray was read per radiology as no acute cardiopulmonary abnormality. The patient is being admitted to observation on the date of service of 06/24/2022. Review of Systems Review of Systems: See HPI All systems reviewed & are unremarkable except as noted in HPI and below Constitutional: Constitutional: Reports as per HPI and Reports no additional constitutional complaints Eyes: Eyes: Reports as per HPI and Reports no additional eye complaints ENT: Reports system reviewed and no additional complaints, except as documented and Reports Normal hearing present Cardiovascular: Cardiovascular: Reports no additional cardiovascular complaints Respiratory: Respiratory: Reports no additional respiratory complaints and Reports no additional respiratory complaints Gastrointestinal: Gastrointestinal: Reports as per HPI and Reports no additional gastrointestinal complaints Musculoskeletal: Musculoskeletal: Reports no additional musculoskeletal complaints Integumentary/Breasts: Skin/Breast: Reports system reviewed and no additional complaints, except as docu and Reports as per HPI Neurologic: Reports system reviewed and no additional complaints, except as documented, Reports as per HPI and Reports Normal hearing present Psychiatric: Psychiatric: Reports no additional psychiatric complaints and Reports as per HPI Endocrine: Endocrine: Reports no additional endocrine complaints Hematologic/Lymphatic: Hematologic/Lymphatic: Reports no additional hematologic/lymphatic complaints Allergic/Immunologic: Allergic/Immunologic: Reports no additional allergic/immunologic complaints [facility] Past Medical History Medical History (Updated 06/24/22 @ 23:02 by Shena Frazier NP) Anxiety and depression Atrial fibrillation Dementia Hiatal hernia Hyperlipidemia Lung nodules Pacemaker Surgical History Surgical History (Updated 06/24/22 @ 22:35 by Shena Frazier NP) Surgical history unknown Family History Family History (Updated 06/24/22 @ 23:03 by Shena Frazier NP) Unknown No problems noted. Social History Social History (Updated 06/24/22 @ 23:05 by Shena Frazier NP) Social History: the patient stated that she lost her 1st when he was 38 years old. The patient had 6 children. She has remarried and he also . 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 the patient stated that she did try to smoke but could not afford them when she was younger. She has not smoked since. She denies any alcohol marijuana or illicit drugs. The patient resides at [facility] most likely in the memory care unit. Code status do not resuscitate Sm
[2022-06-24 23:00] LABS: Anion Gap 7 mmol/L (8-16); Blood Urea Nitrogen 20 mg/dL (7-17); Calcium 9.1 mg/dL (8.4-10.2); Carbon Dioxide 25 mmol/L (22-30); Chloride 103 mmol/L (98-107); Estimated CRCL calculation 25 ml/min; Estimated Glomerular Filt Rate 52; Glucose 80 mg/dL (65-110); Potassium 4.6 mmol/L (3.4-5.0); Sodium 135 mmol/L (137-145)
[2022-06-25] VITALS (17 sets, daily range): BP systolic 96–110; BP diastolic 42–74; PULSE 76–141; RESP 15–16; TEMP 36–36.4; O2SAT 94–100; BMI 18.3
[2022-06-25] MEDS: DIGOXIN INJ 250 MCG/ML 2 ML AMP (*BKC) 125 MCG IV PUSH (00:37)
[2022-06-25] MEDS: traMADol HCL (*CRX) 50 MG TABLET PO ×3 (01:10→23:40)
[2022-06-25] MEDS: METOPROLOL TARTRATE INJ 5 MG/5 ML VIAL IV PUSH (02:45)
[2022-06-25 04:30] LABS: Basophils Absolute Auto 0.1 K/mm3 (0.0-0.1); Basophils Percent Auto 0.8 % (0.2-1.2); Eosinophils Absolute Auto 0.1 K/mm3 (0-0.3); Hematocrit 39.9 % (37.0-47.0); Hemoglobin 13.4 g/dL (12.0-15.0); Immature Granulocyte Absolute 0.01 K/mm3 (0.00-0.031); Immature Granulocyte Percent A 0.2 % (0-0.5); Lymphocytes Absolute Auto 1.64 K/mm3 (0.9-3.2); Lymphocytes Percent Auto 24.8 % (18.3-44.2); Mean Corpuscular HGB Conc 33.6 g/dl (32-36); Mean Corpuscular Hemoglobin 33.6 pg (26-34); Mean Platelet Volume 9.6 fl (7.4-10.4); Monocytes Absolute Auto 0.6 K/mm3 (0.1-0.6); Monocytes Percent Auto 8.6 % (2.6-8.5); Neutrophils Absolute Auto 4.2 K/mm3 (1.3-6.7); Neutrophils Percent Auto 63.6 % (45.5-73.1); Platelet Count Result 170 k/mm3 (150-375); Red Blood Count 3.99 M/mm3 (4.2-5.4); Red Cell Distribution Width 14.9 % (11.5-14.5); White Blood Count 6.6 K/mm3 (4.5-10.0)
[2022-06-25 04:42] LABS: Lactic Acid Reflex 1.1 mmol/L (0.7-2.0)
[2022-06-25 04:49] LABS: Alanine Aminotransferase 15 U/L (6-35); Albumin Level 3.6 g/dL (3.5-5.1); Alkaline Phosphatase 110 U/L (38-126); Anion Gap 6 mmol/L (8-16); Aspartate Amino Transferase 26 U/L (14-36); Bilirubin,Total 0.9 mg/dL (0.2-1.3); Blood Urea Nitrogen 18 mg/dL (7-17); Calcium 9.1 mg/dL (8.4-10.2); Carbon Dioxide 26 mmol/L (22-30); Chloride 103 mmol/L (98-107); Estimated CRCL calculation 28 ml/min; Estimated Glomerular Filt Rate 59; Glucose 80 mg/dL (65-110); Magnesium 2.1 mg/dL (1.6-2.3); Potassium 4.2 mmol/L (3.4-5.0); Sodium 135 mmol/L (137-145)
[2022-06-25 05:15] LABS: Thyroid Stimulating Hormone Reflex 0.911 uIU/mL (0.465-4.68)
[2022-06-25] MEDS: METOPROLOL SUCCINATE EXT REL 50 MG TABCR PO (08:45)
[2022-06-25] MEDS: FUROSEMIDE 40 MG TABLET PO (08:45)
--- NOTE | 2022-06-25 12:15 | PM.IMPN ---
Progress Note: A&P Assessment and Plan (1) Acute hyperkalemia: Code(s): E87.5 - Hyperkalemia Status: Acute Assessment and Plan: Potassium 5.7 on admission. This was treated appropriately and on repeat, potassium has normalized. Continue to follow. (2) Atrial fibrillation: Code(s): I48.91 - Unspecified atrial fibrillation Status: Acute Assessment and Plan: Patient has chronic atrial fibrillation on metoprolol succinate 50 mg daily and Xarelto 15 mg daily. Heart rate poorly controlled. She received a dose of digoxin 125 mcg IV once. She received a dose metoprolol 5 mg IV once a few hours later. Patient may have become hypoxic if she developed AFib with RVR while exercising at the facility. CTA is negative for PE. TSH normal. Blood pressure soft at times. Will advance her metoprolol to 75 mg. Monitor blood pressure heart rate. Monitor on telemetry. (3) Hyperlipidemia: Code(s): E78.5 - Hyperlipidemia, unspecified Status: Acute Assessment and Plan: LFTs normal. Continue Crestor. (4) Lung nodules: Code(s): R91.8 - Other nonspecific abnormal finding of lung field Status: Acute Assessment and Plan: CTA shows stable subcentimeter ground-glass opacities in the right lower lobe which are nonspecific. Consider follow-up exam 1 year to reassess. (5) Dementia: Code(s): F03.90 - Unspecified dementia, unspecified severity, without behavioral disturbance, psychotic disturbance, mood disturbance, and anxiety Status: Chronic Assessment and Plan: Mood is stable. Patient is alert but confused. Continue Aricept (6) Compression fracture of vertebra: Code(s): M48.50XA - Collapsed vertebra, not elsewhere classified, site unspecified, initial encounter for fracture Status: Acute Assessment and Plan: CT scan does shows moderate L1 compression fracture likely acute with partially imaged L3 compression fracture age indeterminate. She has a brace in place. Most likely these are subacute findings given her known history. PT/OT Subjective Date/time seen: 06/25/22 12:15 Interval history: 87yo female with dementia and AFib here for shortness of breath. Patient is alert but confused. She is unable to provide accurate history. Review of Systems Review of Systems: ROS unobtainable: Yes unobtainable due to mental status Exam Narrative: AF 97.5 110/74 115 15 94% ra Gen - NARD Chest - CTA bilaterally, nml RR CV -irregular irregular. S1-S2. Telemetry showing AFib with RVR Abd - Soft, NT/ND, Positive BS Ext - No pedal edema Neuro - Alert but confused. Oriented to name only Psych - Nml mood and affect. Pleasant and cooperative Skin - Warm and dry Objective Data Vital Signs Vital Signs: Vital Signs - 24 hr 06/24/22 14:55 06/24/22 15:18 06/24/22 15:19 Temperature 97.6 F Pulse Rate 127 H Respiratory Rate 18 Blood Pressure 107/75 Pulse Oximetry 93 100 100 Oxygen Delivery Room Air Room Air Room Air 06/24/22 17:47 06/24/22 15:18 06/24/22 15:38 Temperature Pulse Rate 107 H 118 H 109 H Respiratory Rate 24 H 15 Blood Pressure Pulse Oximetry Oxygen Delivery 06/24/22 15:45 06/24/22 16:00 06/24/22 16:15 Temperature Pulse Rate 90 113 H 114 H Respiratory Rate 19 18 14 Blood Pressure 139/77 Pulse Oximetry 96 Oxygen Delivery 06/24/22 16:30 06/24/22 16:50 06/24/22 17:00 Temperature Pulse Rate 109 H 116 H Respiratory Rate 16 16 24 H Blood Pressure Pulse Oximetry 95 Oxygen Delivery 06/24/22 17:20 06/24/22 17:30 06/24/22 18:00 Temperature Pulse Rate 126 H 107 H 94 Respiratory Rate 17 20 Blood Pressure 142/86 H Pulse Oximetry 98 Oxygen Delivery 06/24/22 18:26 06/24/22 18:15 06/24/22 20:00 Temperature 98 F 98.5 F Pulse Rate 97 108 H Respiratory Rate 20 16 Blood Pressure 95/63 L 87/64 L Pulse Oximetry 9
[2022-06-25] MEDS: METOPROLOL SUCCINATE EXT REL 25 MG TABCR PO (13:26)
[2022-06-25] MEDS: RIVAROXABAN 15 MG TABLET PO (16:11)
[2022-06-25] MEDS: LATANOPROST 0.005% OP SOLN 2.5 ML BTL 1 DROP EACH EYE (20:26)
[2022-06-25] MEDS: ROSUVASTATIN 10 MG TABLET 20 MG PO (20:27)
[2022-06-25] MEDS: traZODone HCL 50 MG TABLET PO (20:27)
[2022-06-25] MEDS: DONEPEZIL HCL 10 MG TABLET PO (20:28)
[2022-06-26] VITALS (17 sets, daily range): BP systolic 90–132; BP diastolic 48–78; PULSE 75–137; RESP 14–20; TEMP 36.2–36.8; O2SAT 95–98
[2022-06-26 04:46] LABS: Anion Gap 8 mmol/L (8-16); Blood Urea Nitrogen 17 mg/dL (7-17); Calcium 9.2 mg/dL (8.4-10.2); Carbon Dioxide 25 mmol/L (22-30); Chloride 98 mmol/L (98-107); Estimated CRCL calculation 27 ml/min; Estimated Glomerular Filt Rate 59; Glucose 80 mg/dL (65-110); Sodium 131 mmol/L (137-145)
[2022-06-26] MEDS: FUROSEMIDE 40 MG TABLET PO (08:07)
[2022-06-26] MEDS: ACETAMINOPHEN 325 MG TABLET 650 MG PO ×2 (08:10→16:12)
[2022-06-26] MEDS: METOPROLOL SUCCINATE EXT REL 25 MG, METOPROLOL SUCCINATE EXT REL 50 MG 75 MG PO (08:32)
--- NOTE | 2022-06-26 12:00 | PCOTNOTE ---
Attempted OT evaluation, despite encouragement from therapist and RN, patient declined participating with OT at this time, reporting I just want to be left alone .
[2022-06-26] MEDS: RIVAROXABAN 15 MG TABLET PO (16:12)
--- NOTE | 2022-06-26 17:21 | PM.DS ---
DS: Admitting Diagnosis Discharge Date 06/26/22 Admitting Diagnosis Shortness of breath. DS: Discharge Diagnosis Discharge Diagnosis (1) Acute hyperkalemia: Code(s): E87.5 - Hyperkalemia Status: Acute (2) Atrial fibrillation: Code(s): I48.91 - Unspecified atrial fibrillation Status: Acute (3) Hyperlipidemia: Code(s): E78.5 - Hyperlipidemia, unspecified Status: Acute (4) Lung nodules: Code(s): R91.8 - Other nonspecific abnormal finding of lung field Status: Acute (5) Dementia: Code(s): F03.90 - Unspecified dementia, unspecified severity, without behavioral disturbance, psychotic disturbance, mood disturbance, and anxiety Status: Chronic (6) Compression fracture of vertebra: Code(s): M48.50XA - Collapsed vertebra, not elsewhere classified, site unspecified, initial encounter for fracture Status: Acute DS: Summary Hospital Course Reason for hospitalization: 87yo female with dementia and AFib here for shortness of breath. Hospital Course: Patient was sent in due to hypoxia but no hypoxia found on initial evaluation. She remained on room air through out her hospital course. Potassium was 5.7 on admission.? This was treated appropriately and on repeat, potassium has normalized.?Patient has chronic atrial fibrillation on metoprolol succinate 50 mg daily and Xarelto 15 mg daily.? Heart rate was poorly controlled.?CTA is negative for PE.? TSH was normal.? Blood pressure soft at times.? We advanced her metoprolol succinate to 75 mg daily.?Her blood pressure remained stable. Her heart rate was better controlled even when she was ambulatory (usually <110). The CTA chest shows stable subcentimeter ground-glass opacities in the right lower lobe which are nonspecific. Consider follow-up exam [address] scan also shows moderate L1 compression fracture likely acute with partially imaged L3 compression fracture age indeterminate.?She has known back fracture and has a brace in place.?We continued PT/OT here. She overall did well and was able to be discharged on 06/26/22. Status at Discharge Cognitive/behavioral status at discharge: Stable Time Spent with Patient Time attestation: Total time spent providing and/or coordinating discharge services: 34 minutes Time spent: Greater than 30 minutes Exam Narrative: AF ? 97.7 108/70 88 14 98% ra Gen - NARD Chest - CTA bilaterally, nml RR CV -irregular irregular.? S1-S2.? Telemetry showing AFib with controlled rate Abd - Soft, NT/ND, Positive BS Ext - No pedal edema Neuro - Alert but confused.? Psych - Nml mood and affect.? Pleasant and cooperative Skin - Warm and dry DS: Data Data Completed and Pending Labs on day of discharge: Labs from last 24 hours 06/26/22 03:56 Sodium 131 L Potassium 4.0 Chloride 98 Carbon Dioxide 25 Anion Gap 8 BUN 17 Creatinine 0.90 Estim Creat Clear Calc 27 Estimated GFR 59 Glucose 80 Calcium 9.2 Discharge Plan Discharge Attending physician on discharge: Yony Henderson Discharging Clinician: Yony Henderson Anticipated Discharge Date/Time: 06/26/22 17:28 Patient Disposition: NH Senior Care/Asst Living Activity: other - see discharge instructions Diet: heart healthy Discharge Instructions: Continue back brace as prescribed. Take precautions to avoid falls. Rise slowly from a lying or sitting position. Pause before standing or walking. Follow-up with the provider at the facility Thank you for using [facility] for your health care needs. Patient Instructions: Antibiotic Form, Rivaroxaban (By mouth) Stand Alone Forms: General Discharge Information Follow-up/Referrals: Eleni,Leon Durand MD [Primary Care Provider] - Call for Appointment Discharge Medications: New metoprolol succinate [Toprol XL] 25 mg Tablet Extended Release 24 Hr 75 mg PO QAM Qty: 30 0RF Continued tramadol 5
[2022-06-26] MEDS: LATANOPROST 0.005% OP SOLN 2.5 ML BTL 1 DROP EACH EYE (20:19)
[2022-06-26] MEDS: ROSUVASTATIN 10 MG TABLET 20 MG PO (20:19)
[2022-06-26] MEDS: traZODone HCL 50 MG TABLET PO (20:20)
[2022-06-26] MEDS: DONEPEZIL HCL 10 MG TABLET PO (20:20)
== END 2022-06-26 23:00 ==
LOC: ANHED 17:08 → ANHIMU 06-25 15:52
PROVIDERS: Emergency Medicine; Nurse Practitioner; Admitting Provider Hospitalist; Emergency Provider Emergency Medicine; PCP Internal Medicine; Visit Provider Internal Medicine
DX: E87.5 Hyperkalemia (principal); I48.91 Unspecified atrial fibrillation; E78.5 Hyperlipidemia, unspecified; R91.8 Other nonspecific abnormal finding of lung field; F03.90 Unspecified dementia, unspecified severity, without behavioral disturbance, psychotic disturbance, mood disturbance, and anxiety; M48.50XA Collapsed vertebra, not elsewhere classified, site unspecified, initial encounter for fracture; R94.31 Abnormal electrocardiogram [ECG] [EKG]; R23.0 Cyanosis; R00.1 Bradycardia, unspecified; Z20.822 Contact with and (suspected) exposure to COVID-19; F41.8 Other specified anxiety disorders; F32.A Depression, unspecified; K44.9 Diaphragmatic hernia without obstruction or gangrene; I71.40 Abdominal aortic aneurysm, without rupture, unspecified; Z95.0 Presence of cardiac pacemaker; Z79.01 Long term (current) use of anticoagulants; Z87.891 Personal history of nicotine dependence; Z79.1 Long term (current) use of non-steroidal anti-inflammatories (NSAID); Z79.891 Long term (current) use of opiate analgesic; Z79.899 Other long term (current) drug therapy
CPT/HCPCS: 36415; 71046; 71275; 80048; 80053; 82533; 83605; 83735; 84443; 85025; 87637; 93005; 96374; 96375; 99285; A9270; G0378; J1160; J1815; Q9967

== ENCOUNTER 2022-07-22 13:18 | Outpatient (CLI) | payer MEDICARE, SELFPAY ==
--- NOTE | ~2022-07-22 | XR_ITS ---
XR lumbar spine min 4V DATE: 07/22/2022 13:50 INDICATION: Collapsed vertebra TECHNIQUE: AP, bilateral oblique, lateral and coned lateral lumbosacral views of the lumbar spine COMPARISON: None FINDINGS: There is moderate dextroscoliosis of the lower thoracic and lumbar spine. There is diffuse osteopenia. There is up to almost 50% loss of height at T12 compression fracture, with increased loss of height s emanuel 05/25/2022. Stable moderate anterior wedge compression fracture deformity of L3 since 05/25/2022. Normal alignment of the lumbar spine. Mild degenerative disc disease at L1-2 and L2-3. Moderately prominent degenerative disc disease at L3-4 and severe degenerative disc disease at L4-5 a nd L5-S1 No spondylolysis or spondylolisthesis. The sacroiliac joints are intact.. IMPRESSION: T12 and L3 compression fractures, increased in severity at T12 since 05/25/2022 Osteopenia Multilevel degenerative disc disease, most severe at L4-5 and L5-S1 Reviewed, dictated and finalized at location L. IMPRESSION: T12 and L3 compression fractures, increased in severity at T12 sinc e 05/25/2022 Osteopenia Multilevel degenerative disc disease, most severe at L4-5 and L5-S1
== END 2022-07-22 13:19 | disposition home or self-care (01) ==
PROVIDERS: PCP Internal Medicine; Visit Provider Neurological Surgery
DX: M48.44XA Fatigue fracture of vertebra, thoracic region, initial encounter for fracture (principal); M85.88 Other specified disorders of bone density and structure, other site; M51.36 Other intervertebral disc degeneration, lumbar region
CPT/HCPCS: 72110

== ENCOUNTER 2023-12-31 18:28 | Emergency (ER) | payer MEDICARE, SELFPAY ==
--- NOTE | ~2023-12-31 | CT_ITS ---
CT head without contrast Indication: Status post fall COMPARISON: 05/25/2022 Technique: Serial scans were obtained through the brain without the administration of contrast. Dose reduction technique was used on this scan by utilizing automated exposure control and iterative recon struction technique. The dose-length product (DLP) was 681.00 mGy-cm. Findings: There is no evidence of intracranial hemorrhage, mass lesion, or acute infarct. The ventri cles and subarachnoid spaces are dilated, consistent with moderate to severe atrophy. Low attenuatio n regions are seen within the periventricular white matter bilaterally, likely representing changes f rom chronic microvascular ischemic disease. There is no evidence of edema, mass effect or midline sh ift. The visualized paranasal sinuses and mastoid air cells are clear. Impression: No intracranial hemorrhage, mass, or acute infarct. Atrophy and chronic white matter changes, as above. Reviewed, dictated and finalized at location . Impression: No intracranial hemorrhage, mass, or acute infarct. Atrophy and chronic white matter changes, as above.
--- NOTE | ~2023-12-31 | XR_ITS ---
XR clavicle LT DATE: 12/31/2023 20:32 INDICATION: Fall. Left clavicle pain. TECHNIQUE: AP and angled AP views of the left clavicle COMPARISON: None FINDINGS: Anterior dislocation of the left glenohumeral joint. No fracture or dislocation of the left clavicle is evident. Osteopenia. IMPRESSION: Anterior glenohumeral dislocation Reviewed, dictated and finalized at location A.
--- NOTE | ~2023-12-31 | XR_ITS ---
XR shoulder LT min 2V DATE: 12/31/2023 20:32 INDICATION: Fall. Pain. TECHNIQUE: 3 views COMPARISON: None FINDINGS: Anterior glenohumeral dislocation. Normal alignment at the acromioclavicular joint. Osteopenia. IMPRESSION: Anterior glenohumeral dislocation Reviewed, dictated and finalized at location A.
--- NOTE | ~2023-12-31 | CT_ITS ---
Noncontrast CT scan of the cervical spine Technique: Multiple contiguous axial [address] images of the cervical spine were obtained and rec onstructed in 2D sagittal and coronal planes on the acquisition scanner. Dose reduction technique was used on this scan by utilizing automated exposure control, adjustment of the mA and/or kV according to patient size. The dose-length product (DLP) was 99.32 mGy-cm. Clinical History: Pain COMPARISON: 05/26/2022 Findings: No acute fracture or dislocations. There is advanced degenerative disc narrowing at C5-C6. There is moderate facet arthropathy throughout the cervical spine. There is advanced uncovertebral de generative change at C5-C6. There is bilateral neural foraminal narrowing at C5-C6. No prevertebral s oft tissue swelling. Stable 1 cm soft tissue density at the anterior right side of spinal canal at the C1 level (series 3 image 17). Impression: No fracture or subluxation of the cervical spine. Stable degenerative change. Stable 1 cm soft tissue density nodule/lesion at the anterior, right side of spinal canal at the C1 l evel. Reviewed, dictated and finalized at location . Impression: No fracture or subluxation of the cervical spine. Stable degenerative change. Stable 1 cm soft tissue density nodule/lesion at the anterior, right side of sp inal canal at the C1 level.
--- NOTE | ~2023-12-31 | XR_ITS ---
Left Shoulder Technique: AP and scapular Y views were obtained. Clinical History: Post reduction COMPARISON: 12/31/2023 at 8:23 PM Findings: Previously noted humeral head dislocation has been successfully reduced. No fracture or dis location seen currently. Osseous alignment appears anatomic. Soft tissues are unremarkable. Impression: Successful reduction of previously noted humeral head dislocation. No fracture identified. Reviewed, dictated and finalized at location . Impression: Successful reduction of previously noted humeral head dislocation. No fracture identified.
--- NOTE | ~2023-12-31 | XR_ITS ---
XR_[id number]_CR DATE: 12/31/2023 20:32 INDICATION: Fall. Pain. TECHNIQUE: AP, open-mouth, crosstable lateral views COMPARISON: None FINDINGS: Osteopenia. C1 and C2 are normally aligned and the odontoid process appears intact. No fracture or dislocation or locked facet or prevertebral soft tissue swelling is evident. Moderate degenerative disc disease at C5-6. Left anterior glenohumeral joint dislocation IMPRESSION: Osteopenia Moderate degenerative disc disease at C5-6 No apparent fracture or dislocation Reviewed, dictated and finalized at Location A. Reviewed, dictated and finalized at location A.
--- NOTE | ~2023-12-31 | CT_ITS ---
Noncontrast CT scan of the thoracolumbar spine CLINICAL HISTORY: Status post fall TECHNIQUE: Axial noncontrast imaging of the thoracolumbar spine was performed. Sagittal and coronal r eformatted images were constructed. Dose reduction technique was used on this scan by utilizing autom ated exposure control and iterative reconstruction technique. The dose-length product (DLP) was 474.2 3 mGy-cm. FINDINGS: There is moderate to severe compression fracture of L1, probably acute. There is mild to mo derate compression fracture of L3, likely chronic. No other fracture or subluxation seen in the thora columbar spine. There are scattered mild to moderate degenerative disc changes in the thoracic spine, especially at T8-T9, T9-T10, and T10-T11. There is advanced degenerative disc narrowing at L3-L4, L4 -L5, L5-S1. There is moderate degenerative changes degenerative disc narrowing at T12-L1. No significant disc bulge or herniation seen in the thoracic spine. No spinal canal stenosis or cord compression evident in the thoracic spine. At L2-L3, there is mild disc bulge with facet arthropathy, probable mild central canal stenosis. Neur al foramina are preserved. At L3-L4, there is disc bulge and facet arthropathy with probable moderate to advanced central canal stenosis/thecal sac compression. There is moderate left neural foraminal narrowing at this level. At L4-L5, disc bulge and severe facet arthropathy are present, probable moderate to severe central ca nal stenosis. There is severe bilateral neural foraminal narrowing, right worse than left. At L5-S1, there is minimal disc bulge and minimal facet arthropathy. No central canal stenosis. There is moderate bilateral neural foraminal narrowing, right worse in left. Paravertebral soft tissues are unremarkable. Impression: Moderate to severe probable acute L1 compression fracture. Mild to moderate probable chronic L3 compression fracture. Degenerative spondylosis of the thoracolumbar spine, as detailed above, severe at L3-L4 and L4-L5. Reviewed, dictated and finalized at [facility]. Impression: Moderate to severe probable acute L1 compression fracture. Mild to moderate probable chronic L3 compression fracture. Degenerative spondylosis of the thoracolumbar spine, as detailed above, severe at L3-L4 and L4-L5.
[2023-12-31 18:48] VITALS: BP 144/91; PULSE 111; RESP 20; TEMP 36.6; O2SAT 98
[2023-12-31 20:46] VITALS: BP 149/97; PULSE 91; RESP 12; O2SAT 98
--- NOTE | 2023-12-31 21:39 | ED.FALL ---
HPI - Fall General Chief Complaint: Fall Stated Complaint: GLF, left arm pain Time Seen by Provider: 12/31/23 20:15 History of Present Illness HPI Narrative: 88-year-old female presenting after a fall. She tripped on her shoe and fell to her left side. Had immediate left shoulder pain. Also complaining of mid back pain. Unsure if she hit her head. She does have a history of underlying dementia. Currently she only complains of her left shoulder pain. Related Data Home Medications Medication Instructions Recorded Confirmed Vitamin D3 25 mg BYMOUTH DAILY 05/26/22 06/24/22 bimatoprost 0.01 % eye drops 1 drp EACH EYE DAILY 05/26/22 06/24/22 (Lumigan) donepezil 10 mg tablet 10 mg PO HS 05/26/22 06/24/22 rivaroxaban 15 mg tablet (Xarelto) 15 mg PO DAILY 05/26/22 06/24/22 trazodone 50 mg tablet 50 mg PO HS 05/26/22 06/24/22 digoxin 62.5 mcg (0.0625 mg) tablet 62.5 mcg PO DAILY 01/04/24 furosemide 40 mg tablet 20 mg PO DAILY 01/04/24 metoprolol succinate 50 mg 25 mg PO DAILY 01/04/24 tablet,extended release 24 hr Allergies Allergy/AdvReac Type Severity Reaction Status Date / Time No Known Allergies Allergy Verified 01/04/24 11:39 Review of Systems Review of Systems: All systems reviewed & are unremarkable except as noted in HPI and below PMFSH Past Medical History Medical History Anxiety and depression Atrial fibrillation Dementia Hiatal hernia Hyperlipidemia Lung nodules Pacemaker Surgical History Surgical History Surgical history unknown Family History Family History Unknown No problems noted. Social History Social History (Updated 01/04/24 @ 11:40 by Jaylin Thompson CMA) Social History: the patient stated that she lost her 1st when he was 38 years old. The patient had 6 children. She has remarried and he also . 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 the patient stated that she did try to smoke but could not afford them when she was younger. She has not smoked since. She denies any alcohol marijuana or illicit drugs. The patient resides at [facility] most likely in the memory care unit. Code status do not resuscitate Smoking status: Former smoker Alcohol intake: never Substance use: never Substance use type: does not use Do You Feel Safe in your Home?: Yes Lack of Transportation: No Lack of Food: Never True Current Housing: I Have Housing Concerned About Future Housing: No Difficulty Paying Gas/Electric Bills: No Difficulty Paying for Meds: No Currently Unemployed: No Education: High School Diploma/GED Difficulty w/ Childcare or Family Care: No Living arrangements: assisted living Occupation/Education: retired Spiritual care concerns: No Exam Narrative: GENERAL: Uncomfortable secondary to pain in the left arm HEAD: Normocephalic, atraumatic. EYES: PERRLA and EOMI. ENT: grossly unremarkable NECK: Supple. CHEST: No respiratory distress. HEART: Regular rate and rhythm ABDOMEN: Soft, nontender, nondistended EXTREMITIES: L shoulder is diffusely tender, holding left arm in adducted/flexed position against her left side SKIN: Warm, dry, no rash. NEURO: Alert and oriented x3. PSYCH: Normal mood and affect. Course Vital Signs Vital signs: Vital Signs Temperature 97.9 F 12/31/23 18:48 Pulse Rate 111 H 12/31/23 18:48 Respiratory Rate 20 12/31/23 18:48 Blood Pressure 144/91 H 12/31/23 18:48 Pulse Oximetry 98 12/31/23 18:48 Oxygen Delivery Room Air 12/31/23 18:48 Temperature 97.8 F 01/01/24 00:45 Pulse Rate 120 H 01/01/24 01:31 Respiratory Rate 13 01/01/24 01:31 Blood Pressure 141/91 H 01/01/24 01:31 Pulse Oximetry
[2023-12-31] MEDS: fentaNYL CITRATE INJ (*CRX) 100 MCG/2 ML VIAL 50 MCG IV PUSH ×2 (21:54→22:06)
[2023-12-31 22:08] VITALS: BP 111/96; PULSE 115; RESP 18; O2SAT 97
[2023-12-31 23:48] VITALS: PULSE 144; RESP 27; TEMP 36.6; O2SAT 94
[2023-12-31 23:50] VITALS: BP 157/98; PULSE 129; RESP 25; TEMP 36.6; O2SAT 98
[2023-12-31 23:55] VITALS: BP 152/105; PULSE 113; RESP 20; TEMP 36.7; O2SAT 96
[2024-01-01] VITALS (7 sets, daily range): BP systolic 131–151; BP diastolic 79–111; PULSE 111–120; RESP 13–25; TEMP 36.6–36.7; O2SAT 94–96
[2024-01-01] MEDS: PROPOFOL IV EMULSION 200 MG/20 ML VIAL 100 MG IV PUSH (00:23)
[2024-01-01] MEDS: SODIUM CHLORIDE 0.9% IV 1,000 ML 999 ML (00:24)
--- NOTE | 2024-01-01 00:37 | PC.NURSE ---
2350 - EDP Dr. Andrade, respiratory, and this RN at bedside. Pt on cardia monitor, end tidal attached, BVM and crash cart set up. EDP Dr. Andrade administered 60mg propofol - see intra procedure charting 0000- additional 40mg propofol administered by EDP Dr. Andrade - see intra procedure charting. 0015 - post procedure documentation began - see documentation shoulder immobilizer applied.
[2024-01-01] MEDS: IBUPROFEN 400 MG TABLET PO (02:16)
[2024-01-01] MEDS: ACETAMINOPHEN 500 MG TABLET 1000 MG PO (02:16)
== END 2024-01-01 02:47 ==
PROVIDERS: Emergency Provider Emergency Medicine; PCP Internal Medicine
DX: S43.015A Anterior dislocation of left humerus, initial encounter (principal); F03.90 Unspecified dementia, unspecified severity, without behavioral disturbance, psychotic disturbance, mood disturbance, and anxiety; I48.91 Unspecified atrial fibrillation; E78.5 Hyperlipidemia, unspecified; Z66 Do not resuscitate; Z95.0 Presence of cardiac pacemaker; Z87.891 Personal history of nicotine dependence; Z79.01 Long term (current) use of anticoagulants; Z79.899 Other long term (current) drug therapy; M85.88 Other specified disorders of bone density and structure, other site; M50.322 Other cervical disc degeneration at C5-C6 level; M47.815 Spondylosis without myelopathy or radiculopathy, thoracolumbar region; M89.9 Disorder of bone, unspecified; W18.09XA Striking against other object with subsequent fall, initial encounter
CPT/HCPCS: 23650; 70450; 72040; 72125; 72128; 72131; 73000; 73030; 96374; 99285; A9270; J2704; J3010; J7030